=== PATIENT | female | born 1975 | race Hispanic/Latino ===

== ENCOUNTER 2017-03-08 01:52 | Emergency (ER) | payer BC ==
[2017-03-08] MEDS ORDERED: Tetanus/Diphtheria Toxoids 0.5 ml Syringe IM ONE ×2 (03:26→03:55)
[2017-03-08] MEDS ORDERED: Amoxicillin-Clav 875-125 mg Tab PO STA (03:26)
[2017-03-08] MEDS ORDERED: Bacitracin Ointment 30 GM TUBE TOP STA (03:26)
--- NOTE | 2017-03-08 03:29 | C.PDOC ---
History Of Present Illness 41 yo female w/o significant PMHx come in for evaluation of dog bite wound sustained today midnight. Pt reports, " was bitten by one of neighbor's dog". Pt reports, " did not even notice first, jason felt something burning and noted bleeding from my Left ear. maybe he was teething". Pt admits, cleaned wound [employer]. Pt have no information on dog's vaccination status. AT present time, pt denies fever, chills, ear discharge, vertigo, dizziness, neck pain, CP, denies any other associated active complaints. Ambulate to ED for evaluation, not n any apparent distress. Time Seen by Provider: 03/08/17 02:20 Chief Complaint (Nursing): Bite History Per: Patient Onset/Duration Of Symptoms: Sudden Onset Current Symptoms Are (Timing): Still Present Past Medical History Reviewed: Historical Data, Nursing Documentation, Vital Signs Vital Signs: Last Vital Signs Temp 97.7 F 03/08/17 02:05 Pulse 85 03/08/17 02:05 Resp 14 03/08/17 02:05 BP 125/87 03/08/17 02:05 Pulse Ox 98 03/08/17 02:05 - Medical History PMH: No Chronic Diseases Family History: States: No Known Family Hx - Social History Hx Alcohol Use: No Hx Substance Use: No - Immunization History Hx Tetanus Toxoid Vaccination: No Hx Influenza Vaccination: No Hx Pneumococcal Vaccination: No Review Of Systems Except As Marked, All Systems Reviewed And Found Negative. Constitutional: Negative for: Fever, Chills Eyes: Negative for: Vision Change ENT: Positive for: Ear Pain. Negative for: Ear Discharge, Nose Discharge, Throat Pain Cardiovascular: Negative for: Chest Pain, Palpitations Respiratory: Negative for: Cough Gastrointestinal: Negative for: Nausea, Vomiting, Abdominal Pain, Diarrhea Genitourinary: Negative for: Dysuria, Incontinence Musculoskeletal: Negative for: Neck Pain, Back Pain Skin: Positive for: Lesions Neurological: Negative for: Weakness, Numbness, Altered Mental Status, Headache , Dizziness Physical Exam - Physical Exam Appears: Well, Non-toxic, No Acute Distress Skin: Normal Color, Warm, Dry, No Rash Head: Atraumatic, Normacephalic Eye(s): bilateral: PERRL Ear(s): Left: Other (small superficial laceration to superior aspect Left helix with mild localized edema and erythema. No wound discharge.) Nose: No Flaring, No Discharge, No Deformity, No Tenderness Oral Mucosa: Moist Tongue: Normal Appearing, No Laceration Lips: Normal Appearing, No Laceration Throat: Normal, No Erythema, No Exudate, No Drooling Neck: Supple Cardiovascular: Rhythm Regular Respiratory: No Decreased Breath Sounds, No Accessory Muscle Use, No Stridor, No Wheezing Gastrointestinal/Abdominal: Soft, No Tenderness, No Distention, No Guarding Back: No CVA Tenderness, No Vertebral Tenderness Extremity: No Tenderness, No Pedal Edema, No Deformity, No Swelling Neurological/Psych: Oriented x3, Normal Speech, Normal Motor, Normal Sensation, Normal Reflexes ED Course And Treatment O2 Sat by Pulse Oximetry: 98 Pulse Ox Interpretation: Normal Progress Note: Case discused with ED attending and rabbies vaccination is not recommend at present time. On re-eavluation, pt is afebrile, hemodynamicaly stable. NOn-toxic. Tolerate Po well in ED. ENT: exam c/w Left superior tragus superficial laceration. No ear deformity or destruction. neck: (-) meningeal sign. B/L UEs and LEs- intact. Neurologicaly intact. Wound was throughly cleaned, irrigated with saline, bethadine. Abd cream topically applied. tetanus, oral abx given . Pt was advised to contact do's rig mechanic to clarify rabbies vacciantion status, if possible. Pt advised on wound care. Pt understand, ref. to F/u with PMD,Derm in 1-2 days for re-eval. return to ED if any worsening or new changes. Disposition Counseled Patient/Family Regarding: Diagnosis, Need For Followup, Rx Given - Disposition Referrals: [facility] [Outside] Disposition: HOME/ ROUTINE Disposition Time: 03:27 Condition: STABLE Additional Instructions: Clean wound daily with peroxide Apply antibiotic cream topically daily take medication as prescribed Follow up with PMD in 1-2 days for re-evaluation. Return to ED at any time if any worsening or new changes. Prescriptions: Amoxicillin/Clavulanate [Augmentin 875 MG-125 MG] 1 tab PO BID #14 tab Bacitracin OINT 1 applic TP BID #1 tube Instructions: Animal Bite (ED) - Clinical Impression Clinical Impression: Animal bite wound
[2017-03-08] MEDS ORDERED: Amoxicillin-Clav 875-125 mg Tab PO ONE (03:54)
[2017-03-08] MEDS ORDERED: Bacitracin 500 Units/gm Oint Foilpak UD ONE (03:54)
[2017-03-08 04:08] VITALS: BP 117/82; PULSE 86; RESP 16; TEMP 97.9; O2SAT 100
== END 2017-03-08 04:08 | disposition home or self-care (01) ==
LOC: C.ER 01:52
DX: S00.472A Other superficial bite of left ear, initial encounter (principal); W54.0XXA Bitten by dog, initial encounter; Y92.89 Other specified places as the place of occurrence of the external cause